=== PATIENT | female | born 1960 | race Caucasian/White ===

== ENCOUNTER 2017-06-06 07:13 | Day surgery (SDC) | payer BC ==
[~2017-06-06] VITALS: Ht 166.4 cm; Wt 106.0 kg
[2017-06-06] MEDS ORDERED: SODIUM CHLORIDE 0.9% 1,000 ML IV SCH (08:17)
[2017-06-06] MEDS ORDERED: FENTANYL PF 100 MCG/2ML ONE (08:49)
[2017-06-06] MEDS ORDERED: MIDAZOLAM 1 MG/ML, 5ML ONE (08:49)
[2017-06-06 08:50] VITALS: BP 156/95
[2017-06-06] MEDS ORDERED: HYDR-882 PO (08:55)
[2017-06-06] MEDS ORDERED: METH2.5T PO (08:55)
[2017-06-06 09:03] LABS: HEMATOCRIT 43.6 % (34.6-47.8); HEMOGLOBIN 14.8 g/dL (11.7-16.4); WHITE BLOOD COUNT 7.1 x10^3/uL (3.4-10)
[2017-06-06] MEDS ORDERED: LIDOCAINE 4% TOPICAL SOLUTION 50 ML ONE (17:12)
[2017-06-06] MEDS ORDERED: LIDOCAINE GEL 2%, 5ML ONE (17:12)
[2017-06-06] MEDS ORDERED: LIDOCAINE 2%, 20ML ONE (17:12)
== END 2017-06-06 12:35 ==
LOC: OUT 07:13
PROVIDERS: ATTEND Internal Medicine Critical Care Medicine
DX: J40 Bronchitis, not specified as acute or chronic (principal); Z87.39 Personal history of other diseases of the musculoskeletal system and connective tissue
CPT/HCPCS: 31622; 36415; 85025; 85610; 85730; 99152; 99153; J2250; J3010; J3490; J7030; 99151